=== PATIENT | female | born 1945 | race Caucasian/White ===

== ENCOUNTER → 2020-12-18 | Outpatient (CLI) | payer MEDICARE ==
[~2020-12-18] MED LIST: MVI; fluoxetine; lovastatin; omeprazole
== END ==
LOC: LAB 13:21
PROVIDERS: ATTEND Nurse Anesthetist, Certified Registered
DX: Z01.812 Encounter for preprocedural laboratory examination (principal); R10.13 Epigastric pain; Z86.010 Personal history of colon polyps
CPT/HCPCS: U0003

== ENCOUNTER → 2020-12-21 | Day surgery (SDC) | payer MEDICARE ==
[~2020-12-21] MED LIST changes: +GLYCOPYRROLATE 1 MG/5 ML VIAL. ONE; +IPRATRPIUM/ALBUTEROL 0.5/2.5MG 3 ML NEBU. NEB PRN; +IV RINGERS SOLUTION,LACTATED 1,000 ML IV SCH; +LIDOCAINE 2% PF 5 ML VIAL. ONE; +MIDAZOLAM HCL PF 2 MG/2 ML VIAL. IV ONE; +ONDANSETRON PF 4 MG/2 ML VIAL. IV PRN; +PROPOFOL 10,000 MCG/ML (20ML) VIAL IV ONE
[2020-12-21 13:34] VITALS: BP 127/68
--- NOTE | 2020-12-25 19:13 | PATHOLOGY ---
[facility] Accession Number: [id number] . 01 Material submitted: . PART A: ANTRUM - ANTRUM BIOPSY PART B: rectum - RECTAL POLYP X2 . 01 Clinical history: . DYSPHAGIA, PREV HX POLYPS EGD/COLONOSCOPY . 02 Diagnosis: A. Gastric biopsies, antrum: - Chronic gastritis, mild. . B. Colorectal biopsies, rectal polyp x2: - Tubular adenomas (2). . (JPM:jyoti; 12/25/2020) MBR 12/25/2020 1627 Local . 02 Comment: Sections of the gastric antral biopsy reveal gastric antral and antral/body transition mucosa showing congestion and mild chronic inflammation. A properly controlled immunoperoxidase stain for Helicobacter is negative for Helicobacter organisms. . Sections of the rectal biopsies reveal 2 tubular adenomas showing no high-grade dysplasia or evidence of malignancy. . (JPM:jyoti; 12/25/2020) . . Special stain performed: Immunoperoxidase stain for Helicobacter on A1 . 02 Electronically signed: . Grayson Jorge MD, Pathologist NPI- [id number] . 01 Gross description: . A. The specimen is received in formalin, labeled "Plascencia, Makenzie, antrum" received as 2 fragments of soft smith tissue measuring up to 0.5 cm. Entirely submitted in A1. . B. The specimen is received in formalin, labeled "Plascencia, Makenzie, rectal polyp X2" received as 2 fragments of soft smith tissue measuring up to 0.3 cm. Entirely submitted in B1.([facility]; 12/24/2020) ERIN/ERIN 12/25/2020 1624 Local . 02 Pathologist provided ICD-10: K29.50, D12.8 . 02 CPT . 314184, [id number], [id number] Specimen Comment: A courtesy copy of this report has been sent to [phone] Specimen Comment: [phone] Specimen Comment: Report sent to / DR PATINO Performed at: 01 [facility] [address] [id number] MD Cuco Luo MD Phone: [phone] Performed at: 02 [facility] [address] [place], [place] [id number] MD Grayson Jorge MD Phone: [phone]
== END | disposition home or self-care (01) ==
LOC: SURG 10:28
PROVIDERS: ATTEND Internal Medicine Gastroenterology
DX: Z12.11 Encounter for screening for malignant neoplasm of colon (principal); R13.10 Dysphagia, unspecified; R12 Heartburn; K22.2 Esophageal obstruction; K57.30 Diverticulosis of large intestine without perforation or abscess without bleeding; K64.8 Other hemorrhoids; K29.50 Unspecified chronic gastritis without bleeding; D12.8 Benign neoplasm of rectum; K44.9 Diaphragmatic hernia without obstruction or gangrene; K21.9 Gastro-esophageal reflux disease without esophagitis; Z80.0 Family history of malignant neoplasm of digestive organs; Z86.010 Personal history of colon polyps; Z88.8 Allergy status to other drugs, medicaments and biological substances
CPT/HCPCS: 43239; 43450; 45380; 45385; 88305; 88342; J2001; J2704; J3490; J7120